=== PATIENT | female | born 2000 | race Caucasian/White ===

== ENCOUNTER 2021-07-02 09:45 | Inpatient (IN) | payer OTHER ==
[2021-07-02] MEDS ORDERED: Ketorolac Tromethamine 30 MG/ML VIAL ONE ×2 (10:04→13:17)
[2021-07-02] MEDS ORDERED: Morphine 4 MG/ML VIAL ONE (10:04)
[2021-07-02 11:00] LABS: #Eosinphils 0.1 thou/uL (0.0-0.7); #Lymphocytes 1.6 thou/uL (1.20-3.40); #Monocytes 0.5 thou/uL (0.11-0.59); #Neutrophils 3.8 thou/uL (1.40-6.50); %Basophils 0.5 % (0.0-1.0); %Monocytes 7.5 % (0.0-10.0); Hemoglobin 13.5 g/dL (12.0-16.0); Mean Corpuscular HGB CONC 32.9 g/dL (32.0-36.0); Mean Corpuscular Hemoglobin 31.2 pg (27.0-31.0); Mean Platelet Volume 7.6 fL (7.4-10.4); Platelet Count 209 thou/uL (130-400); RBC Distribution Width 12.1 % (11.5-14.5); Red Blood Cell (RBC) Count 4.34 mill/uL (4.20-5.40)
[2021-07-02 11:08] LABS: BHCG - Serum Negative (NEGATIVE); Pregs Control Background? CLEAR/WHITE (CLR/WHITE); Pregs Control Bar Appear? YES (CONTROL BAR)
[2021-07-02 11:16] LABS: ALT (SGPT) 21 U/L (8-55); AST (SGOT) 25 U/L (5-34); Alkaline Phosphatase 56 U/L (40-110); Anion Gap 12 mmol/L (10-20); BUN (Urea Nitrogen) 10 mg/dL (7.0-18.7); Bilirubin, Total 0.4 mg/dL (0.2-1.2); Calc. Creatinine Clearance 0 mL/min (70-130); Calcium 9.2 mg/dL (7.8-10.44); Carbon Dioxide 25 mmol/L (22-29); Chloride 106 mmol/L (98-107); Globulin 3.3 g/dL (2.4-3.5); Glucose 84 mg/dL (70-105); Lipase 20 U/L (8-78); Protein, Total 7.3 g/dL (6.0-8.3); Sodium 139 mmol/L (136-145)
[2021-07-02] MEDS ORDERED: Dextrose 5% in Water 1,000 ML IV PRN (12:43)
[2021-07-02] MEDS ORDERED: traMADol HCl 50 MG TAB PO PRN ×3 (12:43→12:47)
[2021-07-02] MEDS ORDERED: Dextrose 50% Abboject 50 ML SYRINGE SLOW IVP PRN (12:43)
[2021-07-02] MEDS ORDERED: Ondansetron PF 4 MG/2 ML Vial IVP PRN (12:43)
[2021-07-02] MEDS ORDERED: Cyclobenzaprine 10 MG TAB PO PRN (12:47)
[2021-07-02] MEDS: Acetaminophen 325 MG TAB PO SCH ×2 (13:00→19:01)
[2021-07-02] MEDS ORDERED: Ibuprofen 200 MG TAB PO PRN (13:04)
[2021-07-02] MEDS ORDERED: traMADol HCl 50 MG TAB ONE (13:17)
[2021-07-02] MEDS ORDERED: Ketorolac Tromethamine 30 MG/ML VIAL IVP SCH (13:30)
[2021-07-02 16:29] VITALS: BMI 19.5
[2021-07-02] MEDS: traMADol HCl 50 MG TAB PO SCH ×2 (18:59→19:07)
[2021-07-02] MEDS: Famotidine 20 MG TAB PO SCH (20:18)
[2021-07-02] MEDS: Senokot S 8.6-50 MG TAB PO SCH (20:21)
[2021-07-03] MEDS: Acetaminophen 325 MG TAB PO SCH ×4 (00:08→18:46)
[2021-07-03] MEDS: traMADol HCl 50 MG TAB PO SCH ×5 (00:08→23:24)
[2021-07-03] MEDS ORDERED: Lidocaine 1% (PF) 30 ML VIAL SC SCH (08:45)
[2021-07-03] MEDS: Senokot S 8.6-50 MG TAB PO SCH ×2 (08:47→20:51)
[2021-07-03] MEDS: Polyethylene Glycol 3350 17 GM Packet PO SCH (08:48)
[2021-07-03] MEDS: Famotidine 20 MG TAB PO SCH ×2 (08:48→20:52)
[2021-07-03] MEDS ORDERED: Citalopram 20 MG TAB PO SCH (09:00)
[2021-07-03] MEDS ORDERED: Ketorolac Tromethamine 30 MG/ML VIAL IVP SCH (10:30)
[2021-07-03] MEDS: Gabapentin 300 MG CAP PO SCH ×3 (10:39→20:52)
[2021-07-03] MEDS ORDERED: Gabapentin 100 MG CAP PO SCH (15:00)
[2021-07-03] MEDS: Ibuprofen 200 MG TAB PO PRN (17:23)
[2021-07-03] MEDS ORDERED: Acetaminophen 325 MG TAB PO SCH (19:30)
[2021-07-03] MEDS: Acetaminophen 500 MG TAB PO SCH (23:23)
[2021-07-04] MEDS: Ibuprofen 200 MG TAB PO PRN (04:18)
[2021-07-04] MEDS: traMADol HCl 50 MG TAB PO PRN ×2 (04:18→19:01)
[2021-07-04] MEDS: Acetaminophen 500 MG TAB PO SCH ×4 (05:01→23:42)
[2021-07-04] MEDS: traMADol HCl 50 MG TAB PO SCH ×4 (05:02→23:43)
[2021-07-04 06:58] LABS: Anion Gap 8 mmol/L (10-20); BUN (Urea Nitrogen) 9 mg/dL (7.0-18.7); Calc. Creatinine Clearance 114 mL/min (70-130); Calcium 8.9 mg/dL (7.8-10.44); Carbon Dioxide 28 mmol/L (22-29); Chloride 105 mmol/L (98-107); Glucose 86 mg/dL (70-105); Magnesium 1.9 mg/dL (1.6-2.6); Phosphorus 4.2 mg/dL (2.3-4.7); Potassium 3.9 mmol/L (3.5-5.1); Sodium 137 mmol/L (136-145)
[2021-07-04 07:26] LABS: Band 5 % (5-11); Eosinophils 6 % (0-10); Hemoglobin 11.8 g/dL (12.0-16.0); Lymphocytes 41 % (21-51); MDiff Complete? YES; Mean Corpuscular HGB CONC 33.1 g/dL (32.0-36.0); Mean Corpuscular Hemoglobin 30.9 pg (27.0-31.0); Mean Corpuscular Volume 93.3 fL (78.0-98.0); Mean Platelet Volume 7.4 fL (7.4-10.4); Monocytes 6 % (0-10); Neutrophil 29 % (42-75); Platelet Count 189 thou/uL (130-400); Platelet Morphology Comment Appears Adequate; RBC Distribution Width 11.8 % (11.5-14.5); RBC Morphology Normal; Reactive Lymphocytes 13 % (0-10); Red Blood Cell (RBC) Count 3.82 mill/uL (4.20-5.40); White Blood Cell (WBC) Count 4.7 thou/uL (4.8-10.8)
[2021-07-04] MEDS: Famotidine 20 MG TAB PO SCH ×2 (08:49→20:33)
[2021-07-04] MEDS: Gabapentin 300 MG CAP PO SCH ×3 (08:49→20:32)
[2021-07-04] MEDS: Escitalopram Oxalate 20 mg Tablet PO SCH (08:49)
[2021-07-04] MEDS: Senokot S 8.6-50 MG TAB PO SCH ×2 (08:49→20:33)
[2021-07-04] MEDS: Polyethylene Glycol 3350 17 GM Packet PO SCH (08:50)
[2021-07-04 21:34] LABS: SARS-CoV-2 PCR by NAA Not Detected (NotDetected)
[2021-07-05] MEDS: Acetaminophen 500 MG TAB PO SCH ×3 (05:51→18:03)
[2021-07-05] MEDS: traMADol HCl 50 MG TAB PO SCH ×3 (05:52→18:43)
[2021-07-05] MEDS: Gabapentin 300 MG CAP PO SCH ×2 (08:33→14:18)
[2021-07-05] MEDS: Escitalopram Oxalate 20 mg Tablet PO SCH (08:33)
[2021-07-05] MEDS: Polyethylene Glycol 3350 17 GM Packet PO SCH (08:34)
[2021-07-05] MEDS: Famotidine 20 MG TAB PO SCH (08:34)
[2021-07-05] MEDS: Senokot S 8.6-50 MG TAB PO SCH (08:34)
[2021-07-05 16:09] VITALS: BP 109/68; TEMP 98.4
== END 2021-07-05 19:05 | disposition home or self-care (01) | DRG 201 ==
LOC: ERS 09:45 → SURG B 12:43
PROVIDERS: ADMIT Surgery; ATTEND Surgery
PROC: 0W9B00Z Drainage of Left Pleural Cavity with Drainage Device, Open Approach (ICD-10-PCS; principal; 2021-07-03)
DX: S27.0XXA Traumatic pneumothorax, initial encounter (principal); V49.50XA Passenger injured in collision with unspecified motor vehicles in traffic accident, initial encounter; Z98.890 Other specified postprocedural states; Z20.822 Contact with and (suspected) exposure to COVID-19
CPT/HCPCS: 36415; 71045; 71260; 72125; 74177; 80048; 80053; 83690; 83735; 84100; 84484; 84703; 85025; 96374; 96375; 96376; G0390; J1885; J2001; J2270; U0003; U0005

== ENCOUNTER 2021-07-13 09:46 | Outpatient (CLI) | payer OTHER | END 2021-07-13 09:47 | disposition home or self-care (01) | LOC: BICRAD 09:46 | PROVIDERS: ATTEND Surgery | DX: V89.2XXA Person injured in unspecified motor-vehicle accident, traffic, initial encounter (principal) | CPT/HCPCS: 71046 ==